=== PATIENT | male | born 1945 | race Caucasian/White ===

== ENCOUNTER 2023-03-22 08:56 | Emergency (ER) | payer MEDICARE, BC ==
[~2023-03-22] VITALS: Ht 180.3 cm; Wt 103.2 kg
[~2023-03-22 08:56] MED LIST: APIX5TAB3 PO; ASPI81TA53 PO; DILT30TA2 PO; EMPA10TA PO; FLUT15.815 NAS; HYDR-3972 PO; KETOCONAZOLE CREAM TOP; LOP12.5T PO; SIMV-45 PO; [UNRECOGNIZED DRUG - CODE] NAS; [UNRECOGNIZED DRUG - SUPPLY] NAS
[2023-03-22] MEDS ORDERED: amiodarone 150mg/dext, iso-os 100 ML IV ONE (09:20)
[2023-03-22 09:44] LABS: BASOPHILS # (AUTO) 0.1 X10'3 (0-0.2); BASOPHILS % (AUTO) 0.7 % (0-1); EOSINOPHILS # (AUTO) 0.3 X10'3 (0-0.9); EOSINOPHILS % (AUTO) 3.3 % (0-6); HEMATOCRIT 37.4 % (42.0-52.0); HEMOGLOBIN 12.4 g/dl (14.0-17.9); LYMPHOCYTES # (AUTO) 1.3 X10'3 (1.1-4.8); LYMPHOCYTES % (AUTO) 12.7 % (21-51); MEAN CORPUSCULAR HEMOGLOBIN 30.5 PG (27.0-31.0); MEAN CORPUSCULAR HGB CONC 33.3 g/dL (33.0-36.5); MEAN CORPUSCULAR VOLUME 91.6 FL (78-98); MEAN PLATELET VOLUME 7.7 FL (7.4-10.4); MONOCYTES # (AUTO) 0.8 X10'3 (0-0.9); MONOCYTES % (AUTO) 8.1 % (2-12); NEUTROPHILS # (AUTO) 7.9 X10'3 (1.8-7.7); NEUTROPHILS % (AUTO) 75.2 % (42-75); PLATELET COUNT 497 X10'3 (140-440); RED BLOOD COUNT 4.08 X10'6 (4.70-6.10); RED CELL DISTRIBUTION WIDTH 13.2 % (11.5-14.5); WHITE BLOOD COUNT 10.5 X10'3 (4.5-11.0)
[2023-03-22 09:54] LABS: ALANINE AMINOTRANSFERASE 51 U/L (12-78); ALBUMIN 3.1 G/DL (3.4-5.0); ALBUMIN/GLOBULIN RATIO 0.7 (1.1-1.5); ALKALINE PHOSPHATASE 130 IU/L (46-116); ANION GAP 11 (8-16); ASPARTATE AMINO TRANSFERASE 19 U/L (10-37); BILIRUBIN,TOTAL 0.5 MG/DL (0.1-1.0); BLOOD UREA NITROGEN 15 MG/DL (7-18); BUN/CREATININE RATIO 16.7 (10.0-20.0); CALCIUM 9.1 MG/DL (8.5-10.1); CHLORIDE 104 MMOL/L (99-107); GLUCOSE 115 MG/DL (70-104); POTASSIUM 3.9 MMOL/L (3.5-5.1); SODIUM 140 MMOL/L (135-145); TOTAL CARBON DIOXIDE 25.5 MMOL/L (24-32); TOTAL PROTEIN 7.3 G/DL (6.4-8.2); eGFR 82 ML/MIN
[2023-03-22] MEDS ORDERED: AMI200T PO (10:07)
[2023-03-22] MEDS ORDERED: metoprolol tartrate 25mg tablet PO ONE (10:15)
[2023-03-22 11:07] VITALS: BP 147/79
[2023-03-24] MEDS ORDERED: CARSR60C PO (08:58)
== END 2023-03-22 11:10 | disposition home or self-care (01) ==
LOC: ER 08:56
DX: I48.92 Unspecified atrial flutter (principal); I11.0 Hypertensive heart disease with heart failure; I50.9 Heart failure, unspecified; Z88.0 Allergy status to penicillin
CPT/HCPCS: 36415; 71045; 80053; 83880; 84484; 85025; 93005; 96374; 99285; J0282

== ENCOUNTER 2023-08-20 12:45 | Day surgery (SDC) | payer MEDICARE, BC ==
[2023-08-16 09:34] LABS: APTT 30 SECONDS (22-32); INR 1.1 INR; PROTHROMBIN TIME 11.9 SECONDS (9.0-12.0)
[2023-08-20] VITALS (8 sets, daily range): BP systolic 93–121; BP diastolic 51–84; PULSE 50–99; RESP 14–16; TEMP 98.1; O2SAT 95–97
[~2023-08-20] VITALS: Ht 180.3 cm; Wt 96.6 kg
[2023-08-20] MEDS ORDERED: normal saline 1000ml 1,000 ML IV SCH (13:15)
[2023-08-20] MEDS ORDERED: MIDAZolam 1mg/ml 10ml vial IV ONE (13:15)
[2023-08-20] MEDS ORDERED: fentaNYL/PF 50MCG/1 ML 2ML syringe IV ONE (13:15)
[2023-08-20 13:49] LABS: BASOPHILS % (AUTO) 0.6 % (0-1); EOSINOPHILS # (AUTO) 0.1 X10'3 (0-0.9); EOSINOPHILS % (AUTO) 0.7 % (0-6); HEMATOCRIT 42.7 % (42.0-52.0); HEMOGLOBIN 14.4 g/dl (14.0-17.9); LYMPHOCYTES # (AUTO) 1.4 X10'3 (1.1-4.8); LYMPHOCYTES % (AUTO) 17.2 % (21-51); MEAN CORPUSCULAR HGB CONC 33.6 g/dL (33.0-36.5); MEAN PLATELET VOLUME 9.1 FL (7.4-10.4); MONOCYTES # (AUTO) 0.6 X10'3 (0-0.9); MONOCYTES % (AUTO) 7.3 % (2-12); NEUTROPHILS % (AUTO) 74.2 % (42-75); PLATELET COUNT 191 X10'3 (140-440); RED CELL DISTRIBUTION WIDTH 15.3 % (11.5-14.5); WHITE BLOOD COUNT 8.1 X10'3 (4.5-11.0)
[2023-08-20 14:01] LABS: ALANINE AMINOTRANSFERASE 102 U/L (12-78); ALBUMIN 3.9 G/DL (3.4-5.0); ALBUMIN/GLOBULIN RATIO 1.1 (1.1-1.5); ALKALINE PHOSPHATASE 113 IU/L (46-116); ANION GAP 9 (8-16); ASPARTATE AMINO TRANSFERASE 41 U/L (10-37); BILIRUBIN,TOTAL 1.2 MG/DL (0.1-1.0); BLOOD UREA NITROGEN 19 MG/DL (7-18); BUN/CREATININE RATIO 19.4 (10.0-20.0); CHLORIDE 105 MMOL/L (99-107); CREATININE 0.98 MG/DL (0.60-1.10); GLUCOSE 85 MG/DL (70-104); POTASSIUM 4.2 MMOL/L (3.5-5.1); SODIUM 139 MMOL/L (135-145); TOTAL CARBON DIOXIDE 24.9 MMOL/L (24-32); TOTAL PROTEIN 7.5 G/DL (6.4-8.2); eCRCL 68 ML/MIN; eGFR 74 ML/MIN
[2023-08-20] MEDS ORDERED: SPIR25TA5 PO (14:26)
[2023-08-20] MEDS ORDERED: AMI200T PO (14:26)
[2023-08-20] MEDS ORDERED: TRIA60LO11 (14:26)
[2023-08-20] MEDS ORDERED: METO-384 PO (14:43)
[2023-08-20] MEDS ORDERED: ATOR40TA72 PO (14:43)
[2023-08-20] MEDS ORDERED: ACET-1025 PO (14:43)
[2023-08-20] MEDS ORDERED: SACU1TAB (14:43)
== END 2023-08-20 16:00 | disposition home or self-care (01) ==
LOC: SSTAY O 12:45
PROVIDERS: ATTEND Student in an Organized Health Care Education/Training Program
DX: I48.91 Unspecified atrial fibrillation (principal); E78.5 Hyperlipidemia, unspecified; I48.92 Unspecified atrial flutter; I42.9 Cardiomyopathy, unspecified; I11.0 Hypertensive heart disease with heart failure; I50.9 Heart failure, unspecified; I25.10 Atherosclerotic heart disease of native coronary artery without angina pectoris; G47.33 Obstructive sleep apnea (adult) (pediatric); Z79.899 Other long term (current) drug therapy; Z95.5 Presence of coronary angioplasty implant and graft; Z88.0 Allergy status to penicillin
CPT/HCPCS: 36415; 80053; 85025; 85610; 85730; 92960; 93005; J2250; J3010; J7030; A4620